=== PATIENT | male | born 1960 | race Caucasian/White ===

== ENCOUNTER 2019-01-09 10:51 | Emergency (ER) | payer OTHER ==
[2019-01-09 11:15] VITALS: BP 128/81; PULSE 67; RESP 18; TEMP 98.3
--- NOTE | 2019-01-09 12:53 | XR ---
EXAMINATION TYPE: XR hand complete LT DATE OF EXAM: 01/09/2019 CLINICAL HISTORY: Injury with pain. TECHNIQUE: Frontal, lateral and oblique images of the left hand are obtained. COMPARISON: Left wrist x-ray October 27, 2013 FINDINGS: There is no acute fracture/dislocation evident in the left hand. Mild to moderate narrowin g and moderate spurring base of first metacarpal is present. Mild narrowing throughout the phalanges is seen. The overlying soft tissue appears unremarkable. IMPRESSION: There is no acute fracture or dislocation in the left hand.
--- NOTE | 2019-01-09 12:56 | ED ---
Upper Extremity HPI - General Chief Complaint: Extremity Injury, Upper Stated Complaint: Hand injury Time Seen by Provider: 01/09/19 12:15 Source: patient, RN notes reviewed, old records reviewed Mode of arrival: ambulatory Limitations: no limitations - History of Present Illness Initial Comments: 58 year old male with left hand pain after accidentally hitting hand with hammer. Patient reports pain over 2nd and first metacarpal. Patient reports full range of motion of fingers. MD Complaint: Injury to:: left, hand - Related Data Allergies Allergy/AdvReac Type Severity Reaction Status Date / Time No Known Allergies Allergy Verified 01/09/19 11:15 Review of Systems ROS Statement: Those systems with pertinent positive or pertinent negative responses have been documented in the HPI. ROS Other: All systems not noted in ROS Statement are negative. Past Medical History Past Medical History: Hypertension History of Any Multi-Drug Resistant Organisms: None Reported Past Surgical History: No Surgical Hx Reported Past Psychological History: No Psychological Hx Reported Smoking Status: Never smoker Past Alcohol Use History: Occasional Past Drug Use History: None Reported General Exam - General Exam Comments Initial Comments: 58 year old male, no distress. Limitations: no limitations Head exam: Present: atraumatic, normocephalic, normal inspection Eye exam: Present: normal appearance, PERRL, EOMI. Absent: scleral icterus, conjunctival injection, periorbital swelling ENT exam: Present: normal exam, mucous membranes moist Neck exam: Present: normal inspection. Absent: tenderness, meningismus, lymphadenopathy Respiratory exam: Present: normal lung sounds bilaterally. Absent: respiratory distress, wheezes, rales, rhonchi, stridor Cardiovascular Exam: Present: regular rate, normal rhythm, normal heart sounds. Absent: systolic murmur, diastolic murmur, rubs, gallop, clicks Extremities exam: Present: normal inspection, full ROM, normal capillary refill, other (contusion over left hand between 1st and 2nd metacarpal. 2 second cap refill and full sensation reportd. ). Absent: tenderness, pedal edema, joint swelling, calf tenderness Back exam: Present: normal inspection Neurological exam: Present: alert, oriented X3, CN II-XII intact Course Vital Signs 01/09/19 11:12 Temperature 98.3 F Pulse Rate 67 Respiratory 18 Rate Blood Pressure 128/81 O2 Sat by Pulse 99 Oximetry Medical Decision Making - Medical Decision Making Patient is a 58 year old male with left hand pain after hitting hand with hammer at work. Patient hand xray is normal, no fracture. Discussed conctuiosn andpatient placed in gloria wrap. Discussed ortho follow up if symptoms persist. - Radiology Data Radiology results: report reviewed Normal left hand xray, no acute fracture. Disposition Clinical Impression: Hand contusion Disposition: HOME SELF-CARE Condition: Good Instructions (If sedation given, give patient instructions): Hematoma (ED) Additional Instructions: Patient advised follow-up with your primary care physician. Ice the hand. Return to emergency department if any alarming signs or symptoms occur. Is patient prescribed a controlled substance at d/c from ED?: No Referrals: Karthikeyan Berkowitz MD [Primary Care Provider] - 1-2 days Time of Disposition: 12:55
== END 2019-01-09 13:08 | disposition home or self-care (01) ==
LOC: EC 10:51
DX: S60.222A Contusion of left hand, initial encounter (principal); W22.8XXA Striking against or struck by other objects, initial encounter; Y92.69 Other specified industrial and construction area as the place of occurrence of the external cause; Y99.0 Civilian activity done for income or pay
CPT/HCPCS: 99284